=== PATIENT | female | born 1940 | race Caucasian/White ===

== ENCOUNTER 2019-05-28 16:17 | Inpatient (IN) | payer MEDICARE, OTHER ==
[~2019-05-28] VITALS: Ht 160 cm; Wt 72.8 kg
[~2019-05-28 16:17] MED LIST: AMOX1TAB61 PO; ASPI-496 PO; CALC1CAP8 PO; CRAN500C6 PO; CYCL-259 PO; DOXY100T PO; ESTR10TA PO; FLUO20CA23 PO; FOLI-17 PO; GABA300C10 PO; HYDR-3245 PO; LEVO137T2 PO; METO50TA82 PO; SENN-88 PO; TAMS0.4C2 PO
[2019-05-28] MEDS: METOPROLOL TARTRATE 50 MG TAB PO SCH (18:00)
[2019-05-28] MEDS: D5%-0.45NACL+KCL 20MEQ 1,000 ML IV SCH (18:03)
[2019-05-28] MEDS: ONDANSETRON 2MG/ML, 2ML IV PRN (18:03)
[2019-05-28 18:27] LABS: ALANINE AMINOTRANSFERASE 12 U/L (12-78); ANION GAP 11 mmol/L (5-15); CALCIUM 8.9 mg/dL (8.5-10.1); CHLORIDE 94 mmol/L (98-107); CREATININE 0.61 mg/dL (0.55-1.02)
[2019-05-28 18:29] VITALS: BP 135/80
[2019-05-28 18:29] LABS: ALKALINE PHOSPHATASE 86 U/L (45-117); BASOPHILS # (AUTO) 0.01 x10^3/uL (0-0.1); BASOPHILS % (AUTO) 0 % (0-1); BILIRUBIN,TOTAL 0.8 mg/dL (0.2-1.0); EOSINOPHILS # (AUTO) 0.01 x10^3/uL (0-0.4); EOSINOPHILS % (AUTO) 0 % (1-7); LYMPHOCYTES % (AUTO) 10 % (22-44); MD NO; MEAN CORPUSCULAR HGB CONC 32.8 g/dL (32.4-35.8); MEAN CORPUSCULAR VOLUME 88.2 fL (80-100); MEAN PLATELET VOLUME 9.4 fL (7.4-10.4); MONOCYTES # (AUTO) 0.67 x10^3/uL (0.2-0.8); MONOCYTES % (AUTO) 10 % (2-9); NEUTROPHILS # (AUTO) 5.58 x10^3/uL (1.8-6.8); NEUTROPHILS % (AUTO) 80 % (42-75); PLATELET COUNT 269 x10^3/uL (130-400); RED BLOOD COUNT 4.81 x10^6/uL (3.82-5.3); RED CELL DISTRIBUTION WIDTH 14.5 % (9.6-15.2); TOTAL PROTEIN 7.4 g/dL (6.4-8.2)
[2019-05-29 01:18] VITALS: BP 133/77
[2019-05-29] MEDS: D5%-0.45NACL+KCL 20MEQ 1,000 ML IV SCH ×3 (02:11→20:02)
[2019-05-29] MEDS ORDERED: LOSA1TAB22 PO (02:38)
[2019-05-29] MEDS: METOPROLOL TARTRATE 50 MG TAB PO SCH ×2 (06:12→18:41)
[2019-05-29 06:24] LABS: BASOPHILS # (AUTO) 0.01 x10^3/uL (0-0.1); BASOPHILS % (AUTO) 0 % (0-1); EOSINOPHILS # (AUTO) 0.01 x10^3/uL (0-0.4); EOSINOPHILS % (AUTO) 0 % (1-7); LYMPHOCYTES # (AUTO) 0.56 x10^3/uL (1-3.4); LYMPHOCYTES % (AUTO) 13 % (22-44); MD NO; MEAN CORPUSCULAR HEMOGLOBIN 28.7 pg (27.0-34.8); MEAN CORPUSCULAR HGB CONC 32.4 g/dL (32.4-35.8); MEAN CORPUSCULAR VOLUME 88.6 fL (80-100); MEAN PLATELET VOLUME 8.5 fL (7.4-10.4); MONOCYTES # (AUTO) 0.51 x10^3/uL (0.2-0.8); MONOCYTES % (AUTO) 12 % (2-9); NEUTROPHILS # (AUTO) 3.34 x10^3/uL (1.8-6.8); NEUTROPHILS % (AUTO) 75 % (42-75); PLATELET COUNT 241 x10^3/uL (130-400); RED BLOOD COUNT 4.55 x10^6/uL (3.82-5.3); RED CELL DISTRIBUTION WIDTH 14.2 % (9.6-15.2)
[2019-05-29 06:36] LABS: ANION GAP 8 mmol/L (5-15); CHLORIDE 97 mmol/L (98-107); CREATININE 0.57 mg/dL (0.55-1.02)
[2019-05-29 07:30] VITALS: BP 134/72
[2019-05-29] MEDS ORDERED: BISACODYL 5 MG EC TABLET PO PRN (08:30)
[2019-05-29] MEDS: ACETAMINOPHEN 325 MG TABLET PO PRN ×2 (10:22→20:06)
[2019-05-29] MEDS: LOSARTAN 25MG TABLET PO SCH (10:23)
[2019-05-29] MEDS: ONDANSETRON 2MG/ML, 2ML IV PRN (12:02)
[2019-05-29 12:48] VITALS: BP 154/81
[2019-05-29 18:35] VITALS: BP 135/80
[2019-05-30 00:51] VITALS: BP 155/81
[2019-05-30] MEDS: D5%-0.45NACL+KCL 20MEQ 1,000 ML IV SCH ×3 (04:57→21:35)
[2019-05-30] MEDS: METOPROLOL TARTRATE 50 MG TAB PO SCH ×2 (05:00→18:02)
[2019-05-30 07:45] VITALS: BP 157/96
[2019-05-30] MEDS: ACETAMINOPHEN 325 MG TABLET PO PRN ×2 (08:51→18:02)
[2019-05-30] MEDS: LOSARTAN 25MG TABLET PO SCH (08:51)
[2019-05-30 14:12] VITALS: BP 133/79
[2019-05-30 18:51] VITALS: BP 160/89
[2019-05-31 01:21] VITALS: BP 160/86
[2019-05-31 04:56] LABS: ANION GAP 7 mmol/L (5-15); CHLORIDE 103 mmol/L (98-107); CREATININE 0.58 mg/dL (0.55-1.02)
[2019-05-31] MEDS: METOPROLOL TARTRATE 50 MG TAB PO SCH ×2 (06:06→14:45)
[2019-05-31] MEDS: D5%-0.45NACL+KCL 20MEQ 1,000 ML IV SCH ×2 (06:11→16:11)
[2019-05-31] MEDS: ACETAMINOPHEN 325 MG TABLET PO PRN (07:43)
[2019-05-31] MEDS: LOSARTAN 25MG TABLET PO SCH (07:43)
[2019-05-31 08:03] VITALS: BP 154/73
[2019-05-31] MEDS ORDERED: LIDOCAINE 1%, 10ML ONE (08:55)
[2019-05-31] MEDS ORDERED: LORazepam 0.5MG TABLET PO ONE (11:30)
[2019-05-31] MEDS ORDERED: ZOLPIDEM 5MG TABLET PO PRN (11:30)
[2019-05-31] MEDS: ONDANSETRON 2MG/ML, 2ML IV PRN ×2 (16:07→22:17)
[2019-05-31 16:11] VITALS: BP 168/94
[2019-05-31] MEDS: morphine SULFATE 10 MG/ML, 1ML IV PRN ×2 (16:43→22:17)
[2019-05-31 17:44] VITALS: BP 163/88
[2019-05-31 19:08] VITALS: BP 155/97
[2019-05-31] MEDS: LORazepam 0.5MG TABLET PO PRN (22:22)
[2019-06-01 01:34] VITALS: BP 132/85
[2019-06-01] MEDS: ONDANSETRON 2MG/ML, 2ML IV PRN ×2 (03:23→09:25)
[2019-06-01] MEDS: METOPROLOL TARTRATE 50 MG TAB PO SCH ×2 (06:24→17:41)
[2019-06-01 07:56] VITALS: BP 118/79
[2019-06-01] MEDS ORDERED: REGADENOSON 0.4 MG/5 ML SYRINGE ONE (08:28)
[2019-06-01] MEDS: LOSARTAN 25MG TABLET PO SCH (09:25)
[2019-06-01 13:27] VITALS: BP 110/66
[2019-06-01] MEDS: D5%-0.45NACL+KCL 20MEQ 1,000 ML IV SCH (13:52)
[2019-06-01 20:01] VITALS: BP 118/74
[2019-06-02] MEDS: LORazepam 0.5MG TABLET PO PRN (01:24)
[2019-06-02 01:52] VITALS: BP 127/77
[2019-06-02] MEDS: METOPROLOL TARTRATE 50 MG TAB PO SCH ×2 (06:00→16:48)
[2019-06-02 08:29] VITALS: BP 145/87
[2019-06-02] MEDS: D5%-0.45NACL+KCL 20MEQ 1,000 ML IV SCH (08:44)
[2019-06-02] MEDS: LOSARTAN 25MG TABLET PO SCH (08:45)
[2019-06-02] MEDS: ACETAMINOPHEN 325 MG TABLET PO PRN (12:35)
[2019-06-02] MEDS: morphine SULFATE 10 MG/ML, 1ML IV PRN (13:13)
[2019-06-02 13:43] VITALS: BP 147/85
[2019-06-02] MEDS: ONDANSETRON 2MG/ML, 2ML IV PRN (14:20)
[2019-06-02 19:31] VITALS: BP 140/84
[2019-06-02 20:24] LABS: MICROSCOPIC AUTO
[2019-06-02 20:27] LABS: CULTURE INDICATED? YES
[2019-06-02] MEDS ORDERED: SULFAMETH./TRIMETHOPRIM DS 800MG/160MG TABLET PO SCH (21:30)
[2019-06-03 01:50] VITALS: BP 147/80
[2019-06-03] MEDS: ONDANSETRON 2MG/ML, 2ML IV PRN ×4 (01:57→22:34)
[2019-06-03 05:08] VITALS: BP 129/79
[2019-06-03] MEDS: METOPROLOL TARTRATE 50 MG TAB PO SCH ×2 (05:09→18:06)
[2019-06-03] MEDS: D5%-0.45NACL+KCL 20MEQ 1,000 ML IV SCH (05:09)
[2019-06-03 07:06] VITALS: BP 131/84
[2019-06-03] MEDS: LOSARTAN 25MG TABLET PO SCH (08:43)
[2019-06-03] MEDS ORDERED: CEFAZOLIN 0 MG in SODIUM CHLORIDE 0.9% 50 ML IV SCH (12:00)
[2019-06-03 12:13] VITALS: BP 158/90
[2019-06-03] MEDS: CEFAZOLIN PMX 1GM/50ML 50 ML IVPB SCH ×2 (13:15→20:16)
[2019-06-03 19:35] VITALS: BP 124/85
[2019-06-04] MEDS: CEFAZOLIN PMX 1GM/50ML 50 ML IVPB SCH ×4 (02:03→22:44)
[2019-06-04] MEDS: LORazepam 0.5MG TABLET PO PRN (02:13)
[2019-06-04 03:00] VITALS: BP 131/80
[2019-06-04] MEDS: ONDANSETRON 2MG/ML, 2ML IV PRN ×4 (03:01→23:42)
[2019-06-04] MEDS: METOPROLOL TARTRATE 50 MG TAB PO SCH ×2 (05:13→17:36)
[2019-06-04 05:16] LABS: INTERNATIONAL NORMALIZED RATIO 1.07 (0.93-1.1); PROTHROMBIN TIME 11.3 Seconds (9.6-11.5)
[2019-06-04 07:38] VITALS: BP 130/75
[2019-06-04] MEDS: LOSARTAN 25MG TABLET PO SCH (10:20)
[2019-06-04] MEDS: ACETAMINOPHEN 325 MG TABLET PO PRN (13:17)
[2019-06-04 13:25] VITALS: BP 144/72
[2019-06-04] MEDS: D5%-0.45NACL+KCL 20MEQ 1,000 ML IV SCH (17:26)
[2019-06-04 19:38] VITALS: BP 136/81
[2019-06-05 02:45] VITALS: BP 158/90
[2019-06-05] MEDS: METOPROLOL TARTRATE 50 MG TAB PO SCH (04:47)
[2019-06-05] MEDS: ONDANSETRON 2MG/ML, 2ML IV PRN (04:47)
[2019-06-05] MEDS: CEFAZOLIN PMX 1GM/50ML 50 ML IVPB SCH ×4 (04:47→22:30)
[2019-06-05 05:34] LABS: BASOPHILS # (AUTO) 0.02 x10^3/uL (0-0.1); BASOPHILS % (AUTO) 0 % (0-1); EOSINOPHILS # (AUTO) 0.02 x10^3/uL (0-0.4); EOSINOPHILS % (AUTO) 0 % (1-7); LYMPHOCYTES % (AUTO) 19 % (22-44); MD NO; MEAN CORPUSCULAR HEMOGLOBIN 28.5 pg (27.0-34.8); MEAN CORPUSCULAR HGB CONC 32.6 g/dL (32.4-35.8); MEAN CORPUSCULAR VOLUME 87.5 fL (80-100); MEAN PLATELET VOLUME 8.1 fL (7.4-10.4); MONOCYTES # (AUTO) 0.41 x10^3/uL (0.2-0.8); MONOCYTES % (AUTO) 8 % (2-9); NEUTROPHILS # (AUTO) 3.91 x10^3/uL (1.8-6.8); NEUTROPHILS % (AUTO) 73 % (42-75); PLATELET COUNT 294 x10^3/uL (130-400); RED BLOOD COUNT 4.67 x10^6/uL (3.82-5.3); RED CELL DISTRIBUTION WIDTH 15.1 % (9.6-15.2)
[2019-06-05 05:42] LABS: CHLORIDE 100 mmol/L (98-107)
[2019-06-05 05:47] LABS: ANION GAP 9 mmol/L (5-15); CALCIUM 8.8 mg/dL (8.5-10.1); CREATININE 0.75 mg/dL (0.55-1.02)
[2019-06-05] MEDS ORDERED: INDOCYANINE GREEN 25 MG VIAL ONE (07:32)
[2019-06-05] MEDS ORDERED: METHYLENE BLUE 10 MG/ML 10ML ONE (07:32)
[2019-06-05] MEDS ORDERED: HEPARIN 1,000 UNITS/ML, 10ML ONE (07:33)
[2019-06-05] MEDS ORDERED: LIDOCAINE 2% 100MG/5ML SYRINGE ONE (07:40)
[2019-06-05] MEDS ORDERED: CEFOTETAN 2 GM ONE (07:40)
[2019-06-05] MEDS ORDERED: EPHEDRINE 50 MG/ML, 1ML ONE (07:40)
[2019-06-05] MEDS ORDERED: PROPOFOL 10 MG/ML, 20ML ONE (07:40)
[2019-06-05] MEDS ORDERED: PHENYLEPHRINE 10 MG/ML ONE (07:40)
[2019-06-05] MEDS ORDERED: DEXAMETHASONE 4 MG/ML, 1ML ONE (07:40)
[2019-06-05] MEDS ORDERED: SUGAMMADEX 200 MG/2 ML IVPush ONE (07:40)
[2019-06-05] MEDS ORDERED: ROCURONIUM 10MG/ML,5ML ONE (07:40)
[2019-06-05] MEDS: LOSARTAN 25MG TABLET PO SCH (09:00)
[2019-06-05] MEDS ORDERED: HYDROmorphone/PF 5 MG, BUPIVACAINE/PF 0.5%, 30ML 62.5 ML in SODIUM CHLORIDE 0.9% 182.5 ML EPIDCONT SCH (09:02)
[2019-06-05] MEDS ORDERED: PROMETHAZINE 25 MG/ML, 1ML IV PRN (09:30)
[2019-06-05] MEDS ORDERED: ALBUTEROL/IPRATROPIUM 2.5MG/0.5MG, 3 ML NPPB PRN (09:30)
[2019-06-05] MEDS ORDERED: HYDROmorphone 2 MG/ML, 1ML IVPush PRN (09:30)
[2019-06-05] MEDS ORDERED: NALBUPHINE 10 MG/ML, 1ML IVPush PRN (09:30)
[2019-06-05] MEDS ORDERED: MIDAZOLAM 1 MG/ML, 2ML IV PRN (09:30)
[2019-06-05] MEDS ORDERED: hydrALAzine 20 MG/ML, 1ML IV PRN (09:30)
[2019-06-05] MEDS ORDERED: DO NOT GIVE XX SCH ×2 (09:30)
[2019-06-05] MEDS ORDERED: METOPROLOL 1 MG/ML, 5ML IV PRN (09:30)
[2019-06-05] MEDS: D5%-0.45NACL+KCL 20MEQ 1,000 ML IV SCH ×3 (10:30→22:30)
[2019-06-05] MEDS: EPHEDRINE 50 MG/ML, 1ML IVPush PRN ×3 (10:55→11:14)
[2019-06-05] MEDS: PHENYLEPHRINE 50 MG in SODIUM CHLORIDE 0.9% 245 ML IV PRN ×3 (11:55→12:30)
[2019-06-05 12:02] LABS: HEMOGRAM NOTE RECHECKED
[2019-06-05] MEDS ORDERED: PROMETHAZINE 25 MG/ML, 1ML ONE (12:24)
[2019-06-05] MEDS: HYDROmorphone/PF 5 MG, BUPIVACAINE/PF 0.5%, 30ML 62.5 ML in SODIUM CHLORIDE 0.9% 187 ML EPIDCONT SCH (12:25)
[2019-06-05] MEDS ORDERED: FENTANYL PF 100 MCG/2ML ONE (12:35)
[2019-06-05] MEDS: FENTANYL PF 100 MCG/2ML IV PRN ×2 (12:35→12:45)
[2019-06-05 16:28] LABS: ALANINE AMINOTRANSFERASE 9 U/L (12-78); ALBUMIN 2.5 g/dL (3.4-5.0); ANION GAP 9 mmol/L (5-15); CALCIUM 7.2 mg/dL (8.5-10.1); CHLORIDE 108 mmol/L (98-107); CREATININE 0.86 mg/dL (0.55-1.02)
[2019-06-05 16:30] LABS: ALKALINE PHOSPHATASE 40 U/L (45-117); BILIRUBIN,TOTAL 0.4 mg/dL (0.2-1.0); TOTAL PROTEIN 4.6 g/dL (6.4-8.2)
[2019-06-05] MEDS ORDERED: POTASSIUM CHLORIDE 20 MEQ in SODIUM CHLORIDE 0.9% 250 ML IV ONE (16:30)
[2019-06-05 16:34] LABS: MEAN CORPUSCULAR HEMOGLOBIN 28.4 pg (27.0-34.8); MEAN CORPUSCULAR HGB CONC 32.5 g/dL (32.4-35.8); MEAN CORPUSCULAR VOLUME 87.4 fL (80-100); MEAN PLATELET VOLUME 8.5 fL (7.4-10.4); PLATELET COUNT 344 x10^3/uL (130-400); RED CELL DISTRIBUTION WIDTH 15.1 % (9.6-15.2)
[2019-06-05 16:35] LABS: MD YES
[2019-06-05 16:37] LABS: BAND#(MANUAL) 1.52 x10^3/uL; BANDS%(MANUAL) 8 % (0-7); LYMPH#(MANUAL) 0.19 x10^3/uL (1-3.4); LYMPHS% (MANUAL) 1 % (22-44); MONOS#(MANUAL) 0.19 x10^3/uL (0.3-2.7); MONOS% (MANUAL) 1 % (2-9); SEGS% (MANUAL) 90 % (42-75)
[2019-06-05 16:38] LABS: <PLATELET ESTIMATE> ADEQUATE; <PLT MORPHOLOGY> NORMAL PLT MORPH; <RBC MORPHOLOGY> NORMAL
[2019-06-05] MEDS: NOREPINEPHRINE 8 MG in SODIUM CHLORIDE 0.9% 242 ML IV PRN (17:15)
[2019-06-05] MEDS: SODIUM CHLORIDE FLUSH 10ML SYR IVF SCH (21:00)
[2019-06-05] MEDS: LORazepam 0.5MG TABLET PO PRN (21:30)
[2019-06-05] MEDS ORDERED: SODIUM CHLORIDE 0.9%, 250ML IVBOLUS ONE (23:00)
[2019-06-06] MEDS: CEFAZOLIN PMX 1GM/50ML 50 ML IVPB SCH ×3 (04:20→16:12)
[2019-06-06] MEDS: NOREPINEPHRINE 8 MG in SODIUM CHLORIDE 0.9% 242 ML IV PRN ×2 (04:21→14:08)
[2019-06-06 04:37] LABS: BASOPHILS # (AUTO) 0.01 x10^3/uL (0-0.1); BASOPHILS % (AUTO) 0 % (0-1); EOSINOPHILS % (AUTO) 0 % (1-7); LYMPHOCYTES # (AUTO) 0.97 x10^3/uL (1-3.4); LYMPHOCYTES % (AUTO) 6 % (22-44); MD NO; MEAN CORPUSCULAR HEMOGLOBIN 29.1 pg (27.0-34.8); MEAN CORPUSCULAR HGB CONC 32.9 g/dL (32.4-35.8); MEAN CORPUSCULAR VOLUME 88.4 fL (80-100); MEAN PLATELET VOLUME 8.6 fL (7.4-10.4); MONOCYTES # (AUTO) 0.92 x10^3/uL (0.2-0.8); MONOCYTES % (AUTO) 5 % (2-9); NEUTROPHILS # (AUTO) 15.42 x10^3/uL (1.8-6.8); NEUTROPHILS % (AUTO) 89 % (42-75); PLATELET COUNT 361 x10^3/uL (130-400); RED BLOOD COUNT 3.71 x10^6/uL (3.82-5.3); RED CELL DISTRIBUTION WIDTH 14.9 % (9.6-15.2)
[2019-06-06 04:48] LABS: ANION GAP 4 mmol/L (5-15); CALCIUM 7.5 mg/dL (8.5-10.1); CHLORIDE 106 mmol/L (98-107); CREATININE 0.86 mg/dL (0.55-1.02)
[2019-06-06] MEDS: LEVOTHYROXINE 100 MCG INJ IVPush SCH (08:47)
[2019-06-06] MEDS: SODIUM CHLORIDE FLUSH 10ML SYR IVF SCH ×2 (08:47→20:38)
[2019-06-06] MEDS ORDERED: D5%-0.45NACL+KCL 20MEQ 1,000 ML IV SCH (10:30)
[2019-06-06] MEDS ORDERED: SODIUM CHLORIDE 0.9% 1,000 ML IV SCH (14:00)
[2019-06-06] MEDS: INSULIN LISPRO 100 UNITS/ML, PEN SQ-INSULIN SCH ×2 (16:00→20:37)
[2019-06-06] MEDS: SODIUM CHLORIDE 0.9% 1,000 ML IV SCH (16:13)
[2019-06-07] MEDS: CEFAZOLIN PMX 1GM/50ML 50 ML IVPB SCH ×5 (00:12→23:47)
[2019-06-07] MEDS: NOREPINEPHRINE 8 MG in SODIUM CHLORIDE 0.9% 242 ML IV PRN (00:13)
[2019-06-07] MEDS: SODIUM CHLORIDE 0.9% 1,000 ML IV SCH (00:14)
[2019-06-07 04:52] LABS: BASOPHILS # (AUTO) 0.04 x10^3/uL (0-0.1); BASOPHILS % (AUTO) 0 % (0-1); EOSINOPHILS # (AUTO) 0.02 x10^3/uL (0-0.4); EOSINOPHILS % (AUTO) 0 % (1-7); LYMPHOCYTES # (AUTO) 1.28 x10^3/uL (1-3.4); LYMPHOCYTES % (AUTO) 10 % (22-44); MD NO; MEAN CORPUSCULAR HEMOGLOBIN 28.3 pg (27.0-34.8); MEAN CORPUSCULAR HGB CONC 31.9 g/dL (32.4-35.8); MEAN CORPUSCULAR VOLUME 88.8 fL (80-100); MEAN PLATELET VOLUME 8.3 fL (7.4-10.4); MONOCYTES # (AUTO) 0.91 x10^3/uL (0.2-0.8); MONOCYTES % (AUTO) 7 % (2-9); NEUTROPHILS % (AUTO) 82 % (42-75); PLATELET COUNT 297 x10^3/uL (130-400); RED BLOOD COUNT 3.26 x10^6/uL (3.82-5.3); RED CELL DISTRIBUTION WIDTH 15.2 % (9.6-15.2)
[2019-06-07 05:03] LABS: ANION GAP 6 mmol/L (5-15); CALCIUM 7.3 mg/dL (8.5-10.1); CHLORIDE 109 mmol/L (98-107)
[2019-06-07 05:05] LABS: CREATININE 0.58 mg/dL (0.55-1.02)
[2019-06-07] MEDS: INSULIN LISPRO 100 UNITS/ML, PEN SQ-INSULIN SCH ×3 (07:00→17:50)
[2019-06-07] MEDS ORDERED: TPN PER PHARMACY MC PRN (07:30)
[2019-06-07] MEDS: HYDROmorphone/PF 5 MG, BUPIVACAINE/PF 0.5%, 30ML 62.5 ML in SODIUM CHLORIDE 0.9% 187 ML EPIDCONT SCH (08:13)
[2019-06-07] MEDS: LEVOTHYROXINE 100 MCG INJ IVPush SCH (09:01)
[2019-06-07] MEDS: SODIUM CHLORIDE FLUSH 10ML SYR IVF SCH ×2 (09:02→20:55)
[2019-06-07] MEDS ORDERED: SODIUM CHLORIDE 0.9% 1,000 ML IV SCH (14:13)
[2019-06-07] MEDS ORDERED: DEXTROSE 70% IV SCH (17:00)
[2019-06-07] MEDS ORDERED: [UNRECOGNIZED DRUG - OTHER] IV SCH (17:00)
[2019-06-07] MEDS ORDERED: AMINO ACID 10% IV SCH (17:00)
[2019-06-07] MEDS ORDERED: DEXTROSE 10% 500 ML IV PRN (17:00)
[2019-06-07] MEDS ORDERED: DEXTROSE 50%, 50ML SYRINGE IVPush PRN (17:00)
[2019-06-07] MEDS ORDERED: SMOF TPN IV SCH (17:00)
[2019-06-07] MEDS ORDERED: FAT EMUL IV SCH (17:00)
[2019-06-07] MEDS: FILTER, DISP 1.2 MICRON FOR TPN/PVN IV PRN (17:54)
[2019-06-07] MEDS: LORazepam 0.5MG TABLET PO PRN (20:49)
[2019-06-07] MEDS: INSULIN REGULAR LOW DOSE Q6H X 48HRS SQ-INSULIN SCH (20:52)
[2019-06-08] MEDS: INSULIN REGULAR LOW DOSE Q6H X 48HRS SQ-INSULIN SCH ×4 (03:00→22:20)
[2019-06-08 04:59] LABS: ANION GAP 6 mmol/L (5-15); CALCIUM 7.2 mg/dL (8.5-10.1); CHLORIDE 106 mmol/L (98-107); CREATININE 0.46 mg/dL (0.55-1.02)
[2019-06-08] MEDS: CEFAZOLIN PMX 1GM/50ML 50 ML IVPB SCH ×4 (06:14→23:59)
[2019-06-08] MEDS: LEVOTHYROXINE 100 MCG INJ IVPush SCH (08:46)
[2019-06-08] MEDS: SODIUM CHLORIDE FLUSH 10ML SYR IVF SCH ×2 (08:46→21:00)
[2019-06-08] MEDS: PANTOPRAZOLE 40 MG IV IVPush SCH (09:34)
[2019-06-08] MEDS: MIDODRINE 5 MG TABLET PO SCH ×3 (09:49→21:00)
[2019-06-08] MEDS ORDERED: POTASSIUM PHOSPHATE 22 MEQ in SODIUM CHLORIDE 0.9% 250 ML IV ONE (10:00)
[2019-06-08] MEDS: NOREPINEPHRINE 8 MG in SODIUM CHLORIDE 0.9% 242 ML IV PRN (10:41)
[2019-06-08] MEDS ORDERED: SMOF TPN IV SCH (17:00)
[2019-06-08] MEDS ORDERED: DEXTROSE 70% IV SCH (17:00)
[2019-06-08] MEDS ORDERED: [UNRECOGNIZED DRUG - OTHER] IV SCH (17:00)
[2019-06-08] MEDS ORDERED: FAT EMUL IV SCH (17:00)
[2019-06-08] MEDS ORDERED: AMINO ACID 10% IV SCH (17:00)
[2019-06-08] MEDS: FILTER, DISP 1.2 MICRON FOR TPN/PVN IV PRN (18:19)
[2019-06-08] MEDS: LORazepam 0.5MG TABLET PO PRN (21:00)
[2019-06-09] MEDS: INSULIN REGULAR LOW DOSE Q6H X 48HRS SQ-INSULIN SCH (04:53)
[2019-06-09 06:08] LABS: ANION GAP 3 mmol/L (5-15); CALCIUM 7.5 mg/dL (8.5-10.1); CHLORIDE 106 mmol/L (98-107)
[2019-06-09 06:09] LABS: CREATININE 0.36 mg/dL (0.55-1.02)
[2019-06-09 06:11] LABS: BASOPHILS # (AUTO) 0.02 x10^3/uL (0-0.1); BASOPHILS % (AUTO) 0 % (0-1); EOSINOPHILS # (AUTO) 0.16 x10^3/uL (0-0.4); EOSINOPHILS % (AUTO) 3 % (1-7); LYMPHOCYTES # (AUTO) 0.95 x10^3/uL (1-3.4); LYMPHOCYTES % (AUTO) 15 % (22-44); MD NO; MEAN CORPUSCULAR HEMOGLOBIN 28.6 pg (27.0-34.8); MEAN CORPUSCULAR HGB CONC 32.3 g/dL (32.4-35.8); MEAN CORPUSCULAR VOLUME 88.7 fL (80-100); MEAN PLATELET VOLUME 8.8 fL (7.4-10.4); MONOCYTES # (AUTO) 0.51 x10^3/uL (0.2-0.8); MONOCYTES % (AUTO) 8 % (2-9); NEUTROPHILS # (AUTO) 4.53 x10^3/uL (1.8-6.8); NEUTROPHILS % (AUTO) 73 % (42-75); PLATELET COUNT 265 x10^3/uL (130-400); RED BLOOD COUNT 2.83 x10^6/uL (3.82-5.3); RED CELL DISTRIBUTION WIDTH 15.4 % (9.6-15.2)
[2019-06-09] MEDS: CEFAZOLIN PMX 1GM/50ML 50 ML IVPB SCH (06:21)
[2019-06-09] MEDS: PANTOPRAZOLE 40 MG IV IVPush SCH (06:21)
[2019-06-09] MEDS: HYDROcodone/APAP 10/325 MG TABLET PO PRN ×3 (09:24→23:26)
[2019-06-09] MEDS: MIDODRINE 5 MG TABLET PO SCH ×3 (09:24→20:48)
[2019-06-09] MEDS ORDERED: FUROSEMIDE 20 MG/2 ML ONE (10:33)
[2019-06-09] MEDS: LEVOTHYROXINE 100 MCG INJ IVPush SCH (10:37)
[2019-06-09] MEDS: SODIUM CHLORIDE FLUSH 10ML SYR IVF SCH ×2 (10:38→20:48)
[2019-06-09] MEDS ORDERED: FUROSEMIDE 20 MG/2 ML IV ONE (11:00)
[2019-06-09] MEDS ORDERED: SMOF TPN IV SCH (17:00)
[2019-06-09] MEDS ORDERED: FAT EMUL IV SCH (17:00)
[2019-06-09] MEDS ORDERED: DEXTROSE 70% IV SCH (17:00)
[2019-06-09] MEDS ORDERED: AMINO ACID 10% IV SCH (17:00)
[2019-06-09] MEDS ORDERED: [UNRECOGNIZED DRUG - OTHER] IV SCH (17:00)
[2019-06-09] MEDS: FUROSEMIDE 20 MG/2 ML IV SCH (17:46)
[2019-06-09] MEDS: FILTER, DISP 1.2 MICRON FOR TPN/PVN IV PRN (17:52)
[2019-06-09 20:33] VITALS: BP 113/66
[2019-06-09 23:27] VITALS: BP 105/66
[2019-06-10 03:10] VITALS: BP 116/76
[2019-06-10] MEDS: HYDROcodone/APAP 10/325 MG TABLET PO PRN ×4 (03:29→16:45)
[2019-06-10] MEDS: PANTOPRAZOLE 40 MG IV IVPush SCH (05:35)
[2019-06-10] MEDS: LEVOTHYROXINE 50 MCG TABLET PO SCH (05:39)
[2019-06-10 06:03] LABS: BASOPHILS # (AUTO) 0.03 x10^3/uL (0-0.1); BASOPHILS % (AUTO) 0 % (0-1); EOSINOPHILS # (AUTO) 0.22 x10^3/uL (0-0.4); EOSINOPHILS % (AUTO) 4 % (1-7); LYMPHOCYTES # (AUTO) 0.97 x10^3/uL (1-3.4); LYMPHOCYTES % (AUTO) 15 % (22-44); MD NO; MEAN CORPUSCULAR HEMOGLOBIN 28.9 pg (27.0-34.8); MEAN CORPUSCULAR HGB CONC 33.1 g/dL (32.4-35.8); MEAN CORPUSCULAR VOLUME 87.4 fL (80-100); MEAN PLATELET VOLUME 8.8 fL (7.4-10.4); MONOCYTES # (AUTO) 0.46 x10^3/uL (0.2-0.8); MONOCYTES % (AUTO) 7 % (2-9); NEUTROPHILS # (AUTO) 4.75 x10^3/uL (1.8-6.8); NEUTROPHILS % (AUTO) 74 % (42-75); PLATELET COUNT 266 x10^3/uL (130-400); RED BLOOD COUNT 3.13 x10^6/uL (3.82-5.3); RED CELL DISTRIBUTION WIDTH 15.6 % (9.6-15.2)
[2019-06-10 06:14] LABS: ANION GAP 3 mmol/L (5-15); CALCIUM 7.9 mg/dL (8.5-10.1); CHLORIDE 99 mmol/L (98-107)
[2019-06-10 06:15] LABS: CREATININE 0.41 mg/dL (0.55-1.02)
[2019-06-10] MEDS ORDERED: INSULIN REGULAR LOW DOSE QDAY SQ-INSULIN SCH (07:30)
[2019-06-10] MEDS: ONDANSETRON 2MG/ML, 2ML IV PRN ×3 (08:05→21:51)
[2019-06-10] MEDS: FUROSEMIDE 20 MG/2 ML IV SCH ×2 (08:07→16:45)
[2019-06-10] MEDS: MIDODRINE 5 MG TABLET PO SCH ×3 (08:11→21:29)
[2019-06-10] MEDS: SODIUM CHLORIDE FLUSH 10ML SYR IVF SCH ×2 (08:11→21:28)
[2019-06-10 08:39] VITALS: BP 118/84
[2019-06-10] MEDS: ENOXAPARIN 40 MG/0.4 ML SQ SCH (11:46)
[2019-06-10 12:25] VITALS: BP 131/80
[2019-06-10] MEDS ORDERED: [UNRECOGNIZED DRUG - OTHER] IV SCH (17:00)
[2019-06-10] MEDS ORDERED: AMINO ACID 10% IV SCH (17:00)
[2019-06-10] MEDS ORDERED: DEXTROSE 70% IV SCH (17:00)
[2019-06-10] MEDS ORDERED: FAT EMUL IV SCH (17:00)
[2019-06-10] MEDS ORDERED: SMOF TPN IV SCH (17:00)
[2019-06-10 19:33] VITALS: BP 130/84
[2019-06-11 01:05] VITALS: BP 112/71
[2019-06-11] MEDS: LORazepam 0.5MG TABLET PO PRN ×2 (02:15→23:17)
[2019-06-11] MEDS: HYDROcodone/APAP 10/325 MG TABLET PO PRN ×4 (04:50→23:17)
[2019-06-11 05:25] LABS: ANION GAP 7 mmol/L (5-15); CALCIUM 8.2 mg/dL (8.5-10.1); CHLORIDE 101 mmol/L (98-107)
[2019-06-11 05:30] LABS: ALANINE AMINOTRANSFERASE 9 U/L (12-78); ALKALINE PHOSPHATASE 65 U/L (45-117); BILIRUBIN,TOTAL 0.5 mg/dL (0.2-1.0); CREATININE 0.48 mg/dL (0.55-1.02); PREALBUMIN 7.1 mg/dL (20.0-40.0); TOTAL PROTEIN 5.4 g/dL (6.4-8.2); TRIGLYCERIDES 191 mg/dL (50-200)
[2019-06-11] MEDS: LEVOTHYROXINE 50 MCG TABLET PO SCH (06:27)
[2019-06-11] MEDS: PANTOPRAZOLE 40 MG IV IVPush SCH (06:27)
[2019-06-11 07:33] VITALS: BP 125/77
[2019-06-11] MEDS: ENOXAPARIN 40 MG/0.4 ML SQ SCH (09:34)
[2019-06-11] MEDS: SODIUM CHLORIDE FLUSH 10ML SYR IVF SCH ×2 (09:34→20:46)
[2019-06-11] MEDS: MIDODRINE 5 MG TABLET PO SCH ×3 (10:55→21:00)
[2019-06-11] MEDS: ONDANSETRON 2MG/ML, 2ML IV PRN (11:58)
[2019-06-11 13:33] VITALS: BP 126/82
[2019-06-11] MEDS ORDERED: SMOF TPN IV SCH (18:30)
[2019-06-11] MEDS ORDERED: FAT EMUL IV SCH (18:30)
[2019-06-11] MEDS ORDERED: [UNRECOGNIZED DRUG - OTHER] IV SCH (18:30)
[2019-06-11] MEDS ORDERED: AMINO ACID 10% IV SCH (18:30)
[2019-06-11] MEDS ORDERED: DEXTROSE 70% IV SCH (18:30)
[2019-06-11] MEDS: FILTER, DISP 1.2 MICRON FOR TPN/PVN IV PRN (19:19)
[2019-06-11 19:21] VITALS: BP 125/74
[2019-06-12 00:47] VITALS: BP 141/88
[2019-06-12] MEDS: PANTOPRAZOLE 40 MG IV IVPush SCH ×2 (05:39→21:21)
[2019-06-12] MEDS: LEVOTHYROXINE 50 MCG TABLET PO SCH (05:39)
[2019-06-12 06:03] LABS: ANION GAP 5 mmol/L (5-15); CALCIUM 8.2 mg/dL (8.5-10.1); CHLORIDE 104 mmol/L (98-107)
[2019-06-12 06:04] LABS: CREATININE 0.42 mg/dL (0.55-1.02)
[2019-06-12 07:28] VITALS: BP 138/79
[2019-06-12] MEDS: MIDODRINE 5 MG TABLET PO SCH ×3 (10:57→21:00)
[2019-06-12] MEDS: SODIUM CHLORIDE FLUSH 10ML SYR IVF SCH ×2 (10:57→21:22)
[2019-06-12] MEDS: ENOXAPARIN 40 MG/0.4 ML SQ SCH (11:01)
[2019-06-12 13:46] VITALS: BP 127/71
[2019-06-12 16:37] LABS: MICROSCOPIC AUTO
[2019-06-12 16:39] LABS: CULTURE INDICATED? YES
[2019-06-12] MEDS ORDERED: CEFTRIAXONE PMX 1GM/50ML 50 ML IV SCH (17:00)
[2019-06-12] MEDS ORDERED: [UNRECOGNIZED DRUG - OTHER] IV SCH (17:00)
[2019-06-12] MEDS ORDERED: SMOF TPN IV SCH (17:00)
[2019-06-12] MEDS ORDERED: FAT EMUL IV SCH (17:00)
[2019-06-12] MEDS ORDERED: AMINO ACID 10% IV SCH (17:00)
[2019-06-12] MEDS ORDERED: DEXTROSE 70% IV SCH (17:00)
[2019-06-12] MEDS: HYDROcodone/APAP 10/325 MG TABLET PO PRN ×2 (17:52→23:03)
[2019-06-12 19:22] VITALS: BP 147/84
[2019-06-13 00:08] VITALS: BP 143/86
[2019-06-13] MEDS: HYDROcodone/APAP 10/325 MG TABLET PO PRN (04:43)
[2019-06-13] MEDS: LEVOTHYROXINE 50 MCG TABLET PO SCH (04:43)
[2019-06-13 04:50] LABS: ANION GAP 4 mmol/L (5-15); CALCIUM 8.1 mg/dL (8.5-10.1); CHLORIDE 103 mmol/L (98-107); CREATININE 0.37 mg/dL (0.55-1.02)
[2019-06-13] MEDS: ONDANSETRON 2MG/ML, 2ML IV PRN (05:46)
[2019-06-13 07:34] VITALS: BP 138/80
[2019-06-13] MEDS: ENOXAPARIN 40 MG/0.4 ML SQ SCH (07:44)
[2019-06-13] MEDS: PANTOPRAZOLE 40 MG IV IVPush SCH ×2 (07:44→21:50)
[2019-06-13] MEDS: SODIUM CHLORIDE FLUSH 10ML SYR IVF SCH ×2 (07:45→21:51)
[2019-06-13] MEDS: MIDODRINE 5 MG TABLET PO SCH ×2 (07:45→14:52)
[2019-06-13 13:20] VITALS: BP 114/74
[2019-06-13] MEDS ORDERED: FILTER, DISP 1.2 MICRON FOR TPN/PVN IV PRN (17:00)
[2019-06-13] MEDS ORDERED: DEXTROSE 70% IV SCH (17:00)
[2019-06-13] MEDS ORDERED: FAT EMUL IV SCH (17:00)
[2019-06-13] MEDS ORDERED: AMINO ACID 10% IV SCH (17:00)
[2019-06-13] MEDS ORDERED: SMOF TPN IV SCH (17:00)
[2019-06-13] MEDS ORDERED: [UNRECOGNIZED DRUG - OTHER] IV SCH (17:00)
[2019-06-13] MEDS: FAT EMUL IV SCH (17:55)
[2019-06-13] MEDS: [UNRECOGNIZED DRUG - OTHER] IV SCH (17:55)
[2019-06-13] MEDS: SMOF TPN IV SCH (17:55)
[2019-06-13] MEDS: DEXTROSE 70% IV SCH (17:55)
[2019-06-13] MEDS: CEFTAZIDIME PMX 2 GM/50ML 50 ML IV SCH (17:55)
[2019-06-13] MEDS: AMINO ACID 10% IV SCH (17:55)
[2019-06-13 19:51] VITALS: BP 114/72
[2019-06-13] MEDS: ACETAMINOPHEN 325 MG TABLET PO PRN (23:26)
[2019-06-13] MEDS: LORazepam 0.5MG TABLET PO PRN (23:26)
[2019-06-14 01:16] VITALS: BP 126/78
[2019-06-14] MEDS: CEFTAZIDIME PMX 2 GM/50ML 50 ML IV SCH ×3 (02:04→17:25)
[2019-06-14] MEDS: LEVOTHYROXINE 50 MCG TABLET PO SCH (04:19)
[2019-06-14 04:32] LABS: ANION GAP 6 mmol/L (5-15); CHLORIDE 104 mmol/L (98-107); CREATININE 0.41 mg/dL (0.55-1.02)
[2019-06-14 08:57] VITALS: BP 120/68
[2019-06-14] MEDS: PANTOPRAZOLE 40 MG IV IVPush SCH (10:12)
[2019-06-14] MEDS: ACETAMINOPHEN 325 MG TABLET PO PRN ×2 (10:12→17:49)
[2019-06-14] MEDS: ENOXAPARIN 40 MG/0.4 ML SQ SCH (10:12)
[2019-06-14] MEDS: SODIUM CHLORIDE FLUSH 10ML SYR IVF SCH (10:13)
[2019-06-14 12:51] VITALS: BP 130/79
[2019-06-14] MEDS: AMINO ACID 10% IV SCH (17:00)
[2019-06-14] MEDS: SMOF TPN IV SCH (17:00)
[2019-06-14] MEDS: DEXTROSE 70% IV SCH (17:00)
[2019-06-14] MEDS: FAT EMUL IV SCH (17:00)
[2019-06-14] MEDS: [UNRECOGNIZED DRUG - OTHER] IV SCH (17:00)
[2019-06-14] MEDS: PANTOPRAZOLE 40MG TABLET PO SCH (17:25)
[2019-06-14 19:56] VITALS: BP 133/79
[2019-06-14] MEDS: LORazepam 0.5MG TABLET PO PRN (20:11)
[2019-06-14] MEDS: HYDROcodone/APAP 10/325 MG TABLET PO PRN (22:59)
[2019-06-15 00:09] VITALS: BP 127/79
[2019-06-15] MEDS ORDERED: LORazepam 0.5MG TABLET PO ONE (01:00)
[2019-06-15] MEDS: ONDANSETRON 2MG/ML, 2ML IV PRN (02:51)
[2019-06-15] MEDS: CEFTAZIDIME PMX 2 GM/50ML 50 ML IV SCH ×2 (02:54→10:02)
[2019-06-15] MEDS: SODIUM CHLORIDE FLUSH 10ML SYR IVF SCH ×2 (02:54→10:03)
[2019-06-15] MEDS: LEVOTHYROXINE 50 MCG TABLET PO SCH (05:45)
[2019-06-15] MEDS: PANTOPRAZOLE 40MG TABLET PO SCH (05:46)
[2019-06-15 07:57] VITALS: BP 117/78
[2019-06-15] MEDS: ENOXAPARIN 40 MG/0.4 ML SQ SCH (10:02)
[2019-06-15 12:09] VITALS: BP 117/73
[2019-06-15] MEDS: ACETAMINOPHEN 325 MG TABLET PO PRN (13:51)
[2019-06-15] MEDS: HYDROcodone/APAP 10/325 MG TABLET PO PRN (14:24)
== END 2019-06-15 14:35 | disposition home health service (06) | DRG 329 ==
LOC: 4NW 16:17 → CCU 06-05 15:18 → 4NW 06-09 12:50
PROVIDERS: ADMIT Specialist; ATTEND Internal Medicine Infectious Disease
PROC: 03HY32Z Insertion of Monitoring Device into Upper Artery, Percutaneous Approach (ICD-10-PCS; 2019-05-28)
PROC: 0W9B3ZZ Drainage of Left Pleural Cavity, Percutaneous Approach (ICD-10-PCS; 2019-05-31)
PROC: 0DTH0ZZ Resection of Cecum, Open Approach (ICD-10-PCS; 2019-06-05)
PROC: 0UT00ZZ Resection of Right Ovary, Open Approach (ICD-10-PCS; 2019-06-05)
PROC: 0DTB0ZZ Resection of Ileum, Open Approach (ICD-10-PCS; 2019-06-05)
PROC: 0DTU0ZZ Resection of Omentum, Open Approach (ICD-10-PCS; 2019-06-05)
PROC: 0D1K0Z4 Bypass Ascending Colon to Cutaneous, Open Approach (ICD-10-PCS; 2019-06-05)
PROC: 02HV33Z Insertion of Infusion Device into Superior Vena Cava, Percutaneous Approach (ICD-10-PCS; 2019-06-05)
PROC: B548ZZA Ultrasonography of Superior Vena Cava, Guidance (ICD-10-PCS; 2019-06-05)
PROC: 0UT50ZZ Resection of Right Fallopian Tube, Open Approach (ICD-10-PCS; principal; 2019-06-05 07:30)
DX: C48.2 Malignant neoplasm of peritoneum, unspecified (principal); E43 Unspecified severe protein-calorie malnutrition; N39.0 Urinary tract infection, site not specified; R18.8 Other ascites; J90 Pleural effusion, not elsewhere classified; D62 Acute posthemorrhagic anemia; I50.32 Chronic diastolic (congestive) heart failure; K56.609 Unspecified intestinal obstruction, unspecified as to partial versus complete obstruction; I95.81 Postprocedural hypotension; Z66 Do not resuscitate; C57.01 Malignant neoplasm of right fallopian tube; B96.1 Klebsiella pneumoniae [K. pneumoniae] as the cause of diseases classified elsewhere; E03.9 Hypothyroidism, unspecified; E78.5 Hyperlipidemia, unspecified; E83.42 Hypomagnesemia; E86.0 Dehydration; E87.6 Hypokalemia; G57.90 Unspecified mononeuropathy of unspecified lower limb; I11.0 Hypertensive heart disease with heart failure; I25.10 Atherosclerotic heart disease of native coronary artery without angina pectoris; I27.20 Pulmonary hypertension, unspecified; I73.9 Peripheral vascular disease, unspecified; M21.372 Foot drop, left foot; I25.2 Old myocardial infarction; Z86.73 Personal history of transient ischemic attack (TIA), and cerebral infarction without residual deficits; Z87.891 Personal history of nicotine dependence; Z93.3 Colostomy status; Z95.5 Presence of coronary angioplasty implant and graft; Z68.28 Body mass index [BMI] 28.0-28.9, adult; Z98.1 Arthrodesis status; Z86.74 Personal history of sudden cardiac arrest
CPT/HCPCS: 32555; 36415; 36573; 71045; 74018; 74021; 78452; 80048; 80053; 81001; 82533; 82962; 83605; 83735; 84100; 84134; 84478; 85014; 85018; 85025; 85610; 85730; 86850; 86900; 87077; 87081; 87086; 87186; 88112; 88305; 88307; 88341; 88342; 93005; 93017; 93306; C1729; G0378; J0610; J0690; J0696; J1100; J1170; J1644; J1650; J2405; J2704; J2785; J3010; J3475; J3480; A9502; C1751; C9113; J0713; J1940; J2270; J2370; J3420; J3490; J7030; J7050; Q9968

== ENCOUNTER → 2019-11-22 | Outpatient (CLI) | payer MEDICARE, OTHER ==
[~2019-11-22] MED LIST changes: +AMOX-367 PO; +DIPH25CA61 PO; +FLUO10CA13 PO; +GABA300C PO; +GABA600T7 PO; +LOPE-114 PO; +LOSA1TAB22 PO; +METO25TA35 PO; +OMEP-110 PO; +SENN-190 PO; -SENN-88 PO
[2019-11-22 15:55] LABS: ALBUMIN 3.8 g/dL (3.4-5.0); ANION GAP 7 mmol/L (5-15); CALCIUM 9.4 mg/dL (8.5-10.1); CHLORIDE 108 mmol/L (98-107)
[2019-11-22 15:58] LABS: ALANINE AMINOTRANSFERASE 21 U/L (12-78); ALKALINE PHOSPHATASE 110 U/L (45-117); BILIRUBIN,TOTAL 0.6 mg/dL (0.2-1.0); CREATININE 0.91 mg/dL (0.55-1.02); TOTAL PROTEIN 7.2 g/dL (6.4-8.2)
[2019-11-22 16:00] LABS: BASOPHILS # (AUTO) 0.02 x10^3/uL (0-0.1); BASOPHILS % (AUTO) 0 % (0-1); EOSINOPHILS # (AUTO) 0.07 x10^3/uL (0-0.4); EOSINOPHILS % (AUTO) 1 % (1-7); LYMPHOCYTES # (AUTO) 1.78 x10^3/uL (1-3.4); LYMPHOCYTES % (AUTO) 26 % (22-44); MD MORPH REVIEW ONLY; MEAN CORPUSCULAR HEMOGLOBIN 35.9 pg (27.0-34.8); MEAN CORPUSCULAR HGB CONC 33.2 g/dL (32.4-35.8); MEAN PLATELET VOLUME 7.9 fL (7.4-10.4); MONOCYTES # (AUTO) 0.47 x10^3/uL (0.2-0.8); MONOCYTES % (AUTO) 7 % (2-9); NEUTROPHILS # (AUTO) 4.43 x10^3/uL (1.8-6.8); NEUTROPHILS % (AUTO) 66 % (42-75); PLATELET COUNT 203 x10^3/uL (130-400); RED BLOOD COUNT 2.78 x10^6/uL (3.82-5.3); RED CELL DISTRIBUTION WIDTH 23.4 % (9.6-15.2)
[2019-11-22 16:02] LABS: <PLATELET ESTIMATE> ADEQUATE; <PLT MORPHOLOGY> NORMAL PLT MORPH; ANISOCYTOSIS 1+; INTERNATIONAL NORMALIZED RATIO 1.01 (0.93-1.1); OVALOCYTES 1+; POLYCHROMASIA 1+; PROTHROMBIN TIME 10.4 Seconds (9.6-11.5)
== END | disposition home or self-care (01) ==
LOC: STAR 13:47
PROVIDERS: ATTEND Specialist
DX: Z01.818 Encounter for other preprocedural examination (principal); I44.4 Left anterior fascicular block; C78.6 Secondary malignant neoplasm of retroperitoneum and peritoneum; C57.00 Malignant neoplasm of unspecified fallopian tube; R93.5 Abnormal findings on diagnostic imaging of other abdominal regions, including retroperitoneum; R19.09 Other intra-abdominal and pelvic swelling, mass and lump; R97.1 Elevated cancer antigen 125 [CA 125]; K59.00 Constipation, unspecified; Z93.2 Ileostomy status
CPT/HCPCS: 36415; 80053; 85025; 85610; 85730; 93005

== ENCOUNTER → 2019-11-30 | Outpatient (CLI) | payer MEDICARE, OTHER | END | disposition home or self-care (01) | LOC: STAR 12:27 | PROVIDERS: ATTEND Anesthesiology | DX: Z01.812 Encounter for preprocedural laboratory examination (principal); Z20.828 Contact with and (suspected) exposure to other viral communicable diseases | CPT/HCPCS: 36415; 87635 ==

== ENCOUNTER 2020-09-22 12:33 | Observation (INO) | payer MEDICARE, OTHER ==
[~2020-09-22] VITALS: Ht 162.6 cm; Wt 55.2 kg
[~2020-09-22 12:33] MED LIST changes: -CYCL-259 PO; +CYCL10TA2 PO; -FOLI-17 PO; +FOLI1TAB32 PO; -HYDR-3245 PO; +HYDR1TAB53 PO; +ONDA4TAB7 PO; +OXYC1TAB14 PO; +VANCOMYCIN PO
--- NOTE | 2020-09-22 13:31 | NUR ---
PATIENT TO ROOM FROM LOBBY
[2020-09-22] MEDS ORDERED: SODIUM CHLORIDE 0.9% 1,000ML IVBOLUS ONE (14:30)
[2020-09-22] MEDS ORDERED: SODIUM CHLORIDE FLUSH 10ML SYR IVF ONE (14:30)
[2020-09-22 15:09] LABS: BASOPHILS % (AUTO) 0 % (0-1); EOSINOPHILS % (AUTO) 0 % (1-7); LYMPHOCYTES % (AUTO) 25 % (22-44); MEAN CORPUSCULAR HEMOGLOBIN 31.2 pg (27.0-34.8); MEAN CORPUSCULAR HGB CONC 33.6 g/dL (32.4-35.8); MEAN PLATELET VOLUME 8.6 fL (7.4-10.4); MONOCYTES % (AUTO) 8 % (2-9); NEUTROPHILS % (AUTO) 67 % (42-75); PLATELET COUNT 187 x10^3/uL (130-400); RED BLOOD COUNT 4.14 x10^6/uL (3.82-5.3); RED CELL DISTRIBUTION WIDTH 14.2 % (9.6-15.2)
[2020-09-22 15:22] LABS: ALANINE AMINOTRANSFERASE 11 U/L (12-78); ALBUMIN 3.6 g/dL (3.4-5.0); ANION GAP 10 mmol/L (5-15); CALCIUM 9.2 mg/dL (8.5-10.1); CHLORIDE 100 mmol/L (98-107); CREATININE 0.78 mg/dL (0.55-1.02)
[2020-09-22 15:24] LABS: ALKALINE PHOSPHATASE 72 U/L (45-117); TOTAL PROTEIN 6.8 g/dL (6.4-8.2)
[2020-09-22] MEDS ORDERED: OMNIPAQUE 350 MG/ML, 100ML BOTTLE ONE (16:17)
[2020-09-22 17:45] LABS: MICROSCOPIC INDICATED
[2020-09-22] MEDS ORDERED: SODIUM CHLORIDE 0.9% 1,000 ML IV ONE (19:30)
[2020-09-22] MEDS ORDERED: ONDANSETRON 2MG/ML, 2ML IVPush PRN (19:30)
--- NOTE | 2020-09-22 20:23 | NUR ---
PT REQ TO USED HER FLOOR BATHROOM IN 346. PT TRANSPORTED BY TECH TO 346
[2020-09-22 20:36] VITALS: BP 132/75
[2020-09-22] MEDS ORDERED: BISACODYL 10 MG SUPP PR PRN (23:00)
[2020-09-22] MEDS ORDERED: ACETAMINOPHEN 325 MG TABLET PO PRN (23:00)
[2020-09-22] MEDS ORDERED: MELATONIN 5 MG TABLET PO PRN (23:00)
[2020-09-22] MEDS ORDERED: PROMETHAZINE 25 MG/ML, 1ML IM PRN (23:00)
[2020-09-22] MEDS ORDERED: LIDODERM 5% PATCH TD PRN (23:00)
[2020-09-22] MEDS: FAMOTIDINE 20 MG/2 ML IVPush SCH (23:16)
[2020-09-22] MEDS: SODIUM CHLORIDE 0.9% 1,000 ML IV SCH (23:16)
[2020-09-23 00:13] VITALS: BP 109/66
[2020-09-23 06:09] LABS: BASOPHILS % (AUTO) 0 % (0-1); EOSINOPHILS % (AUTO) 1 % (1-7); LYMPHOCYTES % (AUTO) 31 % (22-44); MEAN CORPUSCULAR HEMOGLOBIN 31.7 pg (27.0-34.8); MEAN CORPUSCULAR HGB CONC 33.4 g/dL (32.4-35.8); MEAN PLATELET VOLUME 8.4 fL (7.4-10.4); MONOCYTES % (AUTO) 8 % (2-9); NEUTROPHILS % (AUTO) 61 % (42-75); PLATELET COUNT 152 x10^3/uL (130-400); RED CELL DISTRIBUTION WIDTH 14.1 % (9.6-15.2)
[2020-09-23 06:15] LABS: ANION GAP 5 mmol/L (5-15); CALCIUM 8.3 mg/dL (8.5-10.1); CHLORIDE 106 mmol/L (98-107)
[2020-09-23 06:27] VITALS: BP 130/69
[2020-09-23] MEDS: FAMOTIDINE 20 MG/2 ML IVPush SCH (07:48)
[2020-09-23] MEDS: SODIUM CHLORIDE 0.9% 1,000 ML IV SCH ×2 (07:49→15:00)
[2020-09-23 12:03] VITALS: BP 134/74
[2020-09-24] MEDS ORDERED: FAMOTIDINE 20 MG/2 ML IVPush SCH (09:00)
== END 2020-09-23 17:34 | disposition home or self-care (01) ==
LOC: ED 19:10 → INTOOBSV 19:16 → EDIP 19:16 → ED 19:23 → 3N 20:19
PROVIDERS: ADMIT Family Medicine; ATTEND Family Medicine
DX: K56.7 Ileus, unspecified (principal); K52.9 Noninfective gastroenteritis and colitis, unspecified; R11.2 Nausea with vomiting, unspecified; K21.9 Gastro-esophageal reflux disease without esophagitis; E03.9 Hypothyroidism, unspecified; E78.5 Hyperlipidemia, unspecified; I25.2 Old myocardial infarction; Z85.43 Personal history of malignant neoplasm of ovary; Z79.899 Other long term (current) drug therapy; Z86.73 Personal history of transient ischemic attack (TIA), and cerebral infarction without residual deficits; Z92.21 Personal history of antineoplastic chemotherapy
CPT/HCPCS: 36415; 74177; 80048; 80053; 81001; 83690; 85025; 87086; 96361; 96374; 96376; 99285; G0378; J7030; Q9967